=== PATIENT | male | born 1955 | race Caucasian/White ===

== ENCOUNTER → 2020-07-18 08:57 | Outpatient (CLI) | payer MEDICARE, SELFPAY ==
--- NOTE | ~2020-07-18 | XR_ITS ---
EXAMINATION: XR chest 2V DATE: 07/18/2020 09:22 INDICATION: Other abnormalities of breathing TECHNIQUE: PA and lateral views of the chest were obtained. COMPARISON: Chest radiograph and CT dated 04/01/2015 FINDINGS: Approximately 6 cm diameter masslike like opacity projecting over the lateral left lower lung zone al though this appears to also project beyond the lateral margin of the ribs and may be extrapulmonary. No evident intrathoracic correlate on the lateral projection. No other airspace opacities, pulmonary edema, pleural effusion or pneumothorax. Mild cardiomegaly. Tortuous and enlarged aortic silhouette c onsistent with the aortic aneurysm and dissection identified on prior CT . IMPRESSION: 1. 6 cm masslike opacity projecting over the lower left hemithorax, potentially extra pulmonary. Gerald mmend further evaluation with chest CT. 2. Aneurysmal thoracic aorta with associated type B dissection seen on prior CT. 3. Cardiomegaly. Reviewed, dictated and finalized at location B. SOFTWARE ENGINEER IMPRESSION: 1. 6 cm masslike opacity projecting over the lower left hemithorax, potentially extra pulmonary. Recommend further evaluation with chest CT. 2. Aneurysmal thoracic aorta with associated type B dissection seen on prior CT . 3. Cardiomegaly.
== END ==
PROVIDERS: PCP Family Medicine; Visit Provider Family Medicine
DX: R06.89 Other abnormalities of breathing (principal); I51.7 Cardiomegaly; I71.2 Thoracic aortic aneurysm, without rupture
CPT/HCPCS: 71046

== ENCOUNTER → 2020-07-23 08:25 | Outpatient (CLI) | payer MEDICARE, SELFPAY ==
--- NOTE | ~2020-07-23 | CT_ITS ---
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 TECHNIQUE: Spiral CT of the chest following intravenous injection of 100 mL Omnipaque 350. Axial, co dyan and sagittal images were reviewed. Coronal maximum intensity pixel images of chest reviewed. M aximum intensity projection 3-D reconstructions of the aorta were created by the technologist on [employer] workstation. The dose-length product (DLP) for this examination was 729.01 mGy-cm. The exposu re was tailored according to patient size (auto mA exposure control), and iterative reconstruction (A SIR) was used as additional dose reduction technique. Comparison is made to prior examination from . FINDINGS: There is been significant interval increase in size of both the ascending and descending th oracic aorta, with the ascending aorta measuring up to 7.2 cm (was 4.5 cm in 2015) and the descending thoracic aorta measuring 5.4 cm. On prior study there was a type B dissection. On this examination t here is type A dissection with dissection flap starting at the aortic arch just proximal to the great vessels, and extending proximally toward the root and also distally through the imaged portion of th e mid abdominal aorta. The false lumen of the descending thoracic aortic arch is much larger than the true lumen. Aorta is tortuous. There is no focal airspace disease. There is trace right pleural, and small pericardial effusion. [place] er dome vascular perfusion anomaly. No central pulmonary emboli. No thoracic lymphadenopathy. Mild th oracic spondylosis. IMPRESSION: Type A thoracic aortic aneurysmal dissection. I discussed conversion from type B to type A aneurysm with Dr. Ceballos at 07/23/2020 09:03 CRICKET COACH, states amira thomas decided years ago not to treat this. Patient is presently asymptomatic. Reviewed, dictated and finalized at location B. KET COACH IMPRESSION: Type A thoracic aortic aneurysmal dissection. I discussed conversion from type B to type A aneurysm with Dr. Ceballos at 2/3/202 1 09:03 CRICKET COACH, states patient decided years ago not to treat this. Patient is pre sently asymptomatic.
[2020-07-23 08:44] LABS: Estimated Glomerular Filt Rate > 60
== END ==
PROVIDERS: PCP Family Medicine; Visit Provider Physician Assistant
DX: I71.6 Thoracoabdominal aortic aneurysm, without rupture (principal)
CPT/HCPCS: 71275; Q9967

== ENCOUNTER 2022-11-24 07:46 | Outpatient (CLI) | payer MEDICARE, SELFPAY ==
--- NOTE | ~2022-11-24 | CT_ITS ---
EXAMINATION: CTA chest DATE: 11/24/2022 08:27 INDICATION: Aortic aneurysm. TECHNIQUE: Computed tomographic angiography (CTA) of the chest was performed with 100 mL Omnipaque-35 0 intravenous contrast. Automated exposure control and iterative reconstruction technique were employ ed. The dose-length product was 720.03 mGy-cm. Maximum intensity projection 3D-reconstructions of the aorta and other arteries were constructed by the technologist on a separate workstation. COMPARISON: Chest CT 07/23/2020 FINDINGS: The lungs demonstrate mild atelectasis. There is a trace right pleural effusion. Cardiomega ly is noted. There are coronary artery calcifications. There are calcifications of aortic valve. Ther e is a small pericardial effusion. There is a dissecting aneurysm of ascending and descending thoraci c aorta and the visualized portion of abdominal aorta. The aorta measures 4.5 cm at the sinuses of Va lsalva, 4.5 cm at the sinotubular junction, 7.1 cm in mid ascending aorta, 5.0 cm at the aortic isthm us, 5.4 cm in mid descending aorta, and 4.4 cm in at the diaphragm. 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 There is fenestration of t he dissection with equivalent opacification of the true and false lumens. There are cysts in right ki dney measuring up to 2.0 cm. There is severe cervical spondylosis and mild thoracic spondylosis. Ther e is mild chronic anterior wedging of multiple vertebral bodies. IMPRESSION: 1. Type A dissecting aneurysm of thoracic aorta, stable from 07/23/2020. 2. Small pericardial effusion again seen. Reviewed, dictated and finalized at location A.
== END 2022-11-24 07:47 | disposition home or self-care (01) ==
PROVIDERS: PCP Emergency Medicine; Visit Provider Emergency Medicine
DX: I71.019 Dissection of thoracic aorta, unspecified (principal); I31.39 Other pericardial effusion (noninflammatory)
CPT/HCPCS: 71275; Q9967

== ENCOUNTER → 2023-08-03 15:17 | Outpatient (CLI) | payer MEDICARE, SELFPAY ==
--- NOTE | ~2023-08-03 | XR_ITS ---
XR chest 2V DATE: 08/03/2023 15:29 INDICATION: Cough, shortness of breath TECHNIQUE: 2 views COMPARISON: 11/24/2022 CTA chest 07/18/2020 2 view chest FINDINGS: There is interval enlargement of thoracic aortic aneurysm since 07/18/2020. Cardiomegaly. No pulmonary infiltrate or consolidation, pleural effusion or pulmonary vascular congestion or pneumo thorax is detected. Diffuse osteopenia. Degenerative spurring of the thoracic spine. IMPRESSION: Very prominent thoracic aortic aneurysm, increased in size since 07/18/2021; cardiovascula r surgeon consultation is recommended Cardiomegaly No active pulmonary disease Reviewed, dictated and finalized at location B. DINATOR OF EVALUATION IMPRESSION: Very prominent thoracic aortic aneurysm, increased in size since ; cardiovascular surgeon consultation is recommended Cardiomegaly No active pulmonary disease
== END ==
PROVIDERS: PCP Emergency Medicine; Visit Provider Emergency Medicine
DX: R05.9 Cough, unspecified (principal); R06.02 Shortness of breath; I51.7 Cardiomegaly; I71.20 Thoracic aortic aneurysm, without rupture, unspecified
CPT/HCPCS: 71046

== ENCOUNTER 2024-06-19 09:48 | Outpatient (CLI) | payer MEDICARE, SELFPAY ==
[2024-06-19 12:13] LABS: Basophils Percent Auto 0.4 % (0.2-1.2); Hematocrit 40.9 % (42.0-52.0); Hemoglobin 13.4 g/dL (14.0-18.0); Immature Granulocyte Absolute 0.04 K/mm3 (0.00-0.031); Immature Granulocyte Percent A 0.6 % (0-0.5); Lymphocytes Absolute Auto 1.14 K/mm3 (0.9-3.2); Lymphocytes Percent Auto 16.8 % (18.3-44.2); Mean Corpuscular HGB Conc 32.8 g/dl (32-36); Mean Corpuscular Hemoglobin 32.6 pg (26-34); Mean Corpuscular Volume 99.5 fl (80-100); Mean Platelet Volume 10.3 fl (7.4-10.4); Monocytes Absolute Auto 0.8 K/mm3 (0.1-0.6); Monocytes Percent Auto 11.5 % (2.6-8.5); Neutrophils Absolute Auto 4.8 K/mm3 (1.3-6.7); Neutrophils Percent Auto 70.7 % (45.5-73.1); Platelet Count Result 225 k/mm3 (150-375); Red Blood Count 4.11 M/mm3 (4.6-6.20); Red Cell Distribution Width 12.5 % (11.5-14.5); White Blood Count 6.8 K/mm3 (4.5-10.0)
[2024-06-19 12:27] LABS: Alanine Aminotransferase 14 U/L (6-50); Albumin Level 4.5 g/dL (3.5-5.1); Alkaline Phosphatase 83 U/L (38-126); Anion Gap 4 mmol/L (4-12); Aspartate Amino Transferase 33 U/L (17-59); Bilirubin,Total 1.5 mg/dL (0.2-1.3); Blood Urea Nitrogen 38 mg/dL (9-20); Calcium 9.7 mg/dL (8.4-10.2); Carbon Dioxide 29 mmol/L (22-30); Chloride 98 mmol/L (98-107); Estimated Glomerular Filt Rate 55; Glucose 95 mg/dL (65-110); Potassium 4.8 mmol/L (3.4-5.0); Sodium 131 mmol/L (137-145)
[2024-06-19 12:29] LABS: NT Pro B Type Natriuretic Pept 1410 pg/mL (19.9-100)
[2024-06-19 12:51] LABS: Thyroid Stimulating Hormone 0.642 uIU/mL (0.465-4.680)
== END 2024-06-19 09:49 | disposition home or self-care (01) ==
PROVIDERS: PCP Internal Medicine; Visit Provider Internal Medicine
DX: R06.09 Other forms of dyspnea (principal); I10 Essential (primary) hypertension
CPT/HCPCS: 36415; 80053; 83880; 84443; 85025

== ENCOUNTER 2024-12-25 08:15 | Outpatient (CLI) | payer MEDICARE, SELFPAY ==
--- OUTSIDE RECORDS SUMMARY | 2024-12-25 08:20 | XMS_ITS | Clinical Summary ---
Author Organization [facility] Address [address] [place] [address] Care Team Providers Care Staff Nurse Icu Resource Team Name Role Phone Mickey Eduardo MD Primary Care Provider [phone] Source Comments [facility],non-owned Affiliates and Associated Physician Practices is amultiple site organization consisting of ambulatory clinics and hospital sitesin [place], [place], [place] and [place]. This disclosure is being madepursuant to the Care Everywhere program and may not contain all information available regarding this patient. Last updated 18.[facility] Active Problems Problem Noted Date Diagnosed Date Dissection of aorta 04/21/2015 Overview (09/19/2017): Type B Tobacco use 04/21/2015 Essential (primary) hypertension 04/08/2015 Chronic obstructive pulmonary disease 04/01/2015 Immunizations Immunization Administration Dates Next Due FLU VACCINE TRI IIV3 SPLIT PF IM (FLUVIRIN) 03/20 PNEUMOCOCCAL PPSV23 04/01/2015 TDAP (7yrs+) 04/21/2015 Family History Medical History Relation Name Comments Cancer Father Hypertension Father Early Mother brain aneurysm; Status: Relation Name Status Comments Father Mother Social History Tobacco Use Types Packs/Day Years Used Date Smoking Tobacco: Former Cigarettes 2 9.7 S tarted: 04/08/2015 Smokeless Tobacco: Never Alcohol Use Standard Drinks/Week Comments No 0 (1 standard drink = 0.6 oz pur e alcohol) Sex and Gender Information Value Date Recorded Sex Assigned at Not on file Legal Sex Male 6:06 PM TELEVISION STATION MANAGER Gender Identity Not on file Sexual Orientation Not on file Last Filed Vital Signs Vital Sign Reading Time Taken Comments Blood Pressure 157/82 05/30/2015 12:00 PM TELEVISION STATION MANAGER Pulse 67 05/30/2015 12:12 PM TELEVISION STATION MANAGER Temperature 36.3 C (97.4 F) 05/30/2015 10:05 AM TELEVISION STATION MANAGER Respiratory Rate 20 05/30/2015 12:12 PM TELEVISION STATION MANAGER Oxygen Saturation 99% 05/30/2015 12:12 PM TELEVISION STATION MANAGER Inhaled Oxygen Concentration - - Weight 81.6 kg (180 lb) 05/30/2015 10:05 AM TELEVISION STATION MANAGER Height 182.9 cm (6') 05/30/2015 10:05 AM TELEVISION STATION MANAGER Body Mass Index 24.41 05/30/2015 10:05 AM TELEVISION STATION MANAGER Plan of Treatment Health Maintenance Due Date Last Done Comments COLOGUARD (AGES 45-75) - COL ON CA SCREENING 1955 COLON MONITORING 1955 COLONOSCOPY - COLON CA SCREENING 1955 CT COLONOGRAPHY - COLON CA SCREENING 1955 Colorectal Cancer Screening 1955 FIT - COLON CA SCREENING 1955 FLEX SIG - COLON CA SCREENING 1955 LIPID TESTING 1955 HEPATITIS C SCREENING 12/18/1973 ZOSTER VACCINE (1 of 2) 12/22/2005 PNEUMOCOCCAL VACCINE 50+ (2 of 2 - PCV) 04/01/2016 04/01/2015 AAA SCREENING 12/22/2020 COVID-19 VACCINE ( - 2023-2 5 season) 2024 DEPRESSION SCREENING 06/20/2024 INFLUENZA VACCINE (Season Ended) 2025 04/01/20 15 DTAP/TDAP/TD VACCINES (2 - T d or Tdap) 04/21/2025 04/21/2015 Respiratory Syncytial Virus (RSV) Vaccine Pt: or over 60 yrs (1 - 1-dose 75+ series) 12/22/2030 HEPATITIS B VACCINE Aged Out No longe r eligible based on patient's age to complete this topic HIB VACCINE Aged Out No longer eligi ble based on patient's age to complete this topic HPV VACCINE Aged Out No longer eligi ble based on patient's age to complete this topic MENINGOCOCCAL (Group B) VACC INE SHARED DECISION-MAKING Aged Out No longer eligibl e based on patient's age to complete this topic MENINGOCOCCAL GROUPS A/C/Y/W VACCINE Aged Out No longer eligible b ased on patient's age to complete this topic Insurance [facility] Care Teams Staff Nurse Icu Resource Team Relationship Specialty Start Date End Date Mickey Eduardo MD [address] [place] [address] PCP - General 06/03/15
[2024-12-25 12:25] LABS: Hematocrit 40.8 % (42.0-52.0); Hemoglobin 12.9 g/dL (14.0-18.0); Immature Granulocyte Percent A 0.7 % (0-0.5); Lymphocytes Absolute Auto 0.98 K/mm3 (0.9-3.2); Mean Corpuscular HGB Conc 31.6 g/dl (32-36); Mean Corpuscular Hemoglobin 32.3 pg (26-34); Mean Corpuscular Volume 102.0 fl (80-100); Nucleated Red Blood Cells Absolute Auto 0.000 K/mm3 (0.0-0.012); Nucleated Red Blood Cells Perc 0.0 % (0.0-0.2); Platelet Count Result 235 k/mm3 (150-375); Red Blood Count 4.00 M/mm3 (4.6-6.20); White Blood Count 5.9 K/mm3 (4.5-10.0)
[2024-12-25 13:11] LABS: Hemoglobin A1C 5.4 % (<5.7)
[2024-12-25 13:20] LABS: Alanine Aminotransferase 18 U/L (6-50); Albumin Level 4.3 g/dL (3.5-5.1); Alkaline Phosphatase 71 U/L (38-126); Anion Gap 10 mmol/L (4-12); Aspartate Amino Transferase 42 U/L (17-59); Bilirubin,Total 1.3 mg/dL (0.2-1.3); Blood Urea Nitrogen 29 mg/dL (9-20); Calcium 10.2 mg/dL (8.4-10.2); Carbon Dioxide 30 mmol/L (22-30); Chloride 99 mmol/L (98-107); Estimated Glomerular Filt Rate 58; Glucose 100 mg/dL (65-110); Potassium 5.0 mmol/L (3.4-5.0); Sodium 139 mmol/L (137-145); Total Protein 8.2 g/dL (6.3-8.2)
[2024-12-25 14:27] LABS: Vitamin B12 312.0 pg/mL (239-931)
== END 2024-12-25 08:16 | disposition home or self-care (01) ==
PROVIDERS: PCP Internal Medicine; Visit Provider Internal Medicine
DX: R06.09 Other forms of dyspnea (principal); I10 Essential (primary) hypertension; D64.9 Anemia, unspecified; R73.9 Hyperglycemia, unspecified; Z11.59 Encounter for screening for other viral diseases
CPT/HCPCS: 36415; 80053; 82607; 82746; 83036; 85025; 86803

== ENCOUNTER 2025-04-30 07:40 | Outpatient (CLI) | payer MEDICARE, SELFPAY ==
--- OUTSIDE RECORDS SUMMARY | 2025-04-30 07:43 | XMS_ITS | Clinical Summary ---
Author Organization [facility] Address [address] [place] [address] Care Team Providers Care Plant Wrapper Name Role Phone Mickey Eduardo MD Primary Care Provider [phone] Source Comments [facility],non-owned Affiliates and Associated Physician Practices is amultiple site organization consisting of ambulatory clinics and hospital sitesin [place], [place], [place] and [place]. This disclosure is being madepursuant to the Care Everywhere program and may not contain all information available regarding this patient. 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 Gender Identity Not on file Sexual Orientation Not on file Last Filed Vital Signs Vital Sign Reading Time Taken Comments Blood Pressure 157/82 05/30/2015 12:00 PM PAPER COATING SUPERVISOR Pulse 67 05/30/2015 12:12 PM PAPER COATING SUPERVISOR Temperature 36.3 C (97.4 F) 05/30/2015 10:05 AM PAPER COATING SUPERVISOR Respiratory Rate 20 05/30/2015 12:12 PM PAPER COATING SUPERVISOR Oxygen Saturation 99% 05/30/2015 12:12 PM PAPER COATING SUPERVISOR Inhaled Oxygen Concentration - - Weight 81.6 kg (180 lb) 05/30/2015 10:05 AM PAPER COATING SUPERVISOR Height 182.9 cm (6') 05/30/2015 10:05 AM PAPER COATING SUPERVISOR Body Mass Index 24.41 05/30/2015 10:05 AM PAPER COATING SUPERVISOR Plan of Treatment Health Maintenance Due Date [...] - PCV) 04/01/2016 04/01/2015 AAA SCREENING 12/22/2020 DEPRESSION SCREENING 06/20/2024 COVID-19 VACCINE (1 - 2023-2 5 season) 2025 INFLUENZA VACCINE (#1) 2025 04/01/2015 DTAP/TDAP/TD VACCINES (2 - T d or [...] patient's age to complete this topic Insurance [facility] Care Teams Plant Wrapper Relationship Specialty Start Date End Date Mickey Eduardo MD [address] [place] [address] PCP - General 06/03/15
--- NOTE | 2025-04-30 07:55 | ECHO_ITS ---
Patient Info Name: Paulo Keene Age: 69 years : 1955 Gender: Male Ht: 72 in Wt: 212 lbs BSA: 2.23 m2 HR: 61 bpm BP: 159 / 84 mmHg Technical Quality: Fair Exam Date: 04/30/2025 7:57 AM Patient Status: O Admit Date: 04/30/2025 Exam Type: CA echo doppler color flow Complete two-dimensional, color flow and Doppler transthoracic echocardiogram is performed. Identifier Horse: Nikky West Attending Provider: Del Light DO Summary 1. Complete two-dimensional, color flow and Doppler transthoracic echocardiogram is performed. 2. Left ventricular chamber dimension is normal. 3. Left ventricular systolic function is normal, estimated at 60-65. 4. There is mild concentric increased left ventricular wall thickness. 5. The left ventricular diastolic function is grade II diastolic dysfunction. 6. E/e' 14 is mildly elevated. 7. Left atrial chamber dimension is moderately enlarged. 8. The aortic valve is not well visualized. Cannot determine number of aortic valve leaflets. 9. There is moderate aortic valve sclerosis. 10. There is moderate aortic valve stenosis with a peak velocity of 301 cm/s, mean gradient of 16 mmHg, and aortic valve area of 1.2 cm2. 11. There is mild to moderate aortic valve regurgitation. 12. There is mild to moderate mitral valve regurgitation. 13. There is trace tricuspid valve regurgitation. 14. No pulmonary hypertension, estimated pulmonary arterial systolic pressure is 36 mmHg. 15. The prox ascending aorta size is mildly dilated at 4.4 cm. Left Ventricle Left ventricular chamber dimension is normal. Left ventricular systolic function is normal, estimated at 60-65. There is mild concentric increased left ventricular wall thickness. The left ventricular diastolic function is grade II diastolic dysfunction. E/e' 14 is mildly elevated. Right Ventricle Right ventricular chamber dimension is normal. Right ventricular systolic function is normal. Left Atria Left atrial chamber dimension is moderately enlarged. Right Atria Right atrial chamber dimension is normal. Aortic Valve The aortic valve is not well visualized. Cannot determine number of aortic valve leaflets. There is moderate aortic valve sclerosis. There is moderate aortic valve stenosis with a peak velocity of 301 cm/s, mean gradient of 16 mmHg, and aortic valve area of 1.2 cm2. There is mild to moderate aortic valve regurgitation. Pulmonic Valve There is no pulmonic regurgitation. Mitral Valve There is no mitral valve stenosis. There is mild to moderate mitral valve regurgitation. Tricuspid Valve There is trace tricuspid valve regurgitation. No pulmonary hypertension, estimated pulmonary arterial systolic pressure is 36 mmHg. Pericardium/Pleural There is no pericardial effusion. Inferior Vena Cava Normal inferior vena cava with >50% collapse upon inspiration consistent with normal right atrial pressure, 5 mmHg. Aorta The aortic root size at the sinus of Valsalva is normal. The prox ascending aorta size is mildly dilated at 4.4 cm. Left Ventricular Outflow Tract Name Value Normal LVOT 2D LVOT Diameter 2.0 cm LVOT Doppler LVOT Peak Velocity 123 cm/s LVOT Peak Gradient 6 mmHg LVOT Mean Gradient 3 mmHg LVOT VTI 30 cm LVOT VTI/AV VTI Ratio 0.4 LVOT Stroke Volume 93 ml LVOT CO 5.2 l/min LVOT CI 2.3 l/min/m2 Pulmonic Valve Name Value Normal RVOT Doppler RVOT Peak Velocity 56 cm/s RVOT Peak Gradient 1 mmHg PV Doppler PV Peak Velocity 63 cm/s PV Peak Gradient 2 mmHg Mitral Valve Name Value Normal MV Diastolic Function MV E Peak Velocity 66 cm/s MV A Peak Velocity 66 cm/s MV E/A 1.0 MV Decel Time (PW) 236 ms Tricuspid Valve Name Value Normal TV Regurgitation Doppler TR Peak Velocity 277 cm/s TR Peak Gradient 31 mmHg Estimated PAP/RSVP RA Pressure 5 mmHg <=5 PA Systolic Pressure 36 mmHg <36 RV Systolic Pressure 36 mmHg <36 Aorta Name Value Normal Ascending Aorta Ao Root Diameter (MM) 3.0 cm Ao Root Diam Index (MM) 1.4 cm/m2 Aortic Valve Name Value Normal AV Doppler AV Peak Velocity 301 cm/s AV Peak Gradient 35 mmHg AV Mean Gradient 16 mmHg AV VTI 75 cm AV Area (Cont Eq VTI) 1.2 cm2 >=3.0 AV Area (Cont Eq Choco) 1.3 cm2 AV DI (Choco) 0.41 AV Regurgitation 2D LVOT Area 3.1 cm2 Ventricles Name Value Normal LV Dimensions 2D/MM IVS Diastolic Thickness (2D) 1.3 cm 0.6-1.0 IVS Diastole Thickness (MM) 1.9 cm 0.6-1.0 LVID Diastole (2D) 5.8 cm 4.2-5.8 LVID Diastole (MM) 8.1 cm 4.2-5.8 LVIW Diastolic Thickness (2D) 1.2 cm 0.6-1.0 LVIW Diastolic Thickness (MM) 1.3 cm 0.6-1.0 LVID Systole (2D) 4.4 cm 2.5-4.0 LVID Systole (MM) 5.6 cm 2.5-4.0 LVOT Diameter 2.0 cm LV Mass (2D Cubed) 306.11 g 88.00-224.00 LV Mass Index (2D Cubed) 137 g/m2 49-115 Relative Wall Thickness (2D) 0.40 <=0.42 LV Mass (MM Cubed) 770.64 g 88.00-224.00 LV Mass Index (MM Cubed) 346 g/m2 49-115 Relative Wall Thickness (MM) 0.33 LV Fractional Shortening/Ejection Fraction 2D/MM LV Fractional Shortening (2D) 24 % 25-43 LV Fractional Shortening (MM) 30 % 25-43 LV EF (MM Teichholz) 56 % LV EF (2D Teichholz) 47 % LV Diastolic Volume (4C MOD) 117 ml LV EF (4C MOD) 52 % LV Diastolic Volume (2C MOD) 92 ml LV EF (2C MOD) 65 % LV Diastolic Volume (BP MOD) 105 ml 62-150 LV Diastolic Volume Index (BP MOD) 47 ml/m2 34-74 LV Systolic Volume (BP MOD) 45 ml 21-61 LV Systolic Volume Index (BP MOD) 20 ml/m2 11-31 LV EF (BP MOD) 57 % 52-72 LV Diastolic Length (4C) 8.3 cm LV Systolic Length (4C) 7.6 cm LV Stroke Volume (4C MOD) 61 ml Atria Name Value Normal LA Dimensions LA Dimension (MM) 2.4 cm 3.0-4.0 LA Volume (4C A-L) 75 ml LA Volume (BP A-L) 87 ml RA Dimensions RA Systolic Major [place] Length (4C) 4.9 cm 2.1-2.7 RA Area (4C) 11.6 cm2 <=18.0 Report Signatures
--- NOTE | 2025-04-30 15:33 | WPDPFTINT ---
PFT Procedure Performed PFT Procedure Performed Flow Vol Loop Spirometry w/o Bronchodil PFT Interpretation This is a pulmonary function test with spirometry. The test was performed and results interpreted in accordance with the 2019 and 2005 ATS/ERS Task Force guidelines respectively using the Global Lung Function Initiative-2012 reference equations. Patient demonstrated good effort and cooperation. Reproducibility criteria were met. The quality of the spirometry maneuver was Grade A. Findings: Spirometry: There is decreased maximal expiratory airflow at all lung volumes with concave expiratory flow tracing. The contour the inspiratory flow tracing is normal. The FVC is 2.23 L, 48% predicted. The FEV1 is 1.17 L, 34% predicted. The FEV1: FVC ratio is 53%. Impression: There is a very severe obstructive abnormality. A concurrent restrictive ventilatory abnormality cannot be excluded as lung volumes were not measured. There are no prior studies for comparison
== END 2025-04-30 07:41 | disposition home or self-care (01) ==
PROVIDERS: PCP Internal Medicine; Visit Provider Internal Medicine
DX: R06.09 Other forms of dyspnea (principal); Z72.0 Tobacco use
CPT/HCPCS: 93306; 94375